=== PATIENT | female | born 2000 | race African-American/Black ===

== ENCOUNTER 2019-04-30 09:45 | Emergency (ER) | payer BC ==
[~2019-04-30] VITALS: Ht 144.8 cm; Wt 55.3 kg
[2019-04-30 09:57] VITALS: BP 105/59
--- NOTE | 2019-04-30 09:59 | NUR ---
ED Nurse Note: pt walked in to ED with grandmother due to vomiting since this morning. pt told that drank last night and did marijuana. denies any pain. AAO x4. respiration even and non-labored noted. will wait for the further order.
[2019-04-30] MEDS ORDERED: RANITIDINE HCL150 MG ORAL (10:09)
[2019-04-30] MEDS ORDERED: ONDANSETRON ODT4 MG BC (10:09)
[2019-04-30] MEDS ORDERED: Dicyclomine HCl 10mg/5ml oral soln ORAL ONE (10:15)
[2019-04-30] MEDS ORDERED: Lidocaine 2% Visc 15ml soln ORAL ONE (10:15)
[2019-04-30] MEDS ORDERED: Mylanta II UD 30ml ORAL ONE (10:15)
--- NOTE | 2019-04-30 10:18 | Emergency Room Report ---
History of Present Illness General Chief Complaint: Vomiting Source: Patient Present Illness HPI 19-year-old female presents ED for evaluation. Patient walked in complaining of abdominal pain with vomiting. Started after drinking alcohol last night. Threw up several times last night. Is having epigastric pain. Burning, 5 out of 10, nonradiating. Denies any diarrhea. Also admits to daily marijuana use. Denies any other drug use. No other aggravating relieving factors. Denies any other associated symptoms Allergies: Coded Allergies: No Known Allergies (Unverified , 04/30/19) Patient History Past Medical History: asthma Past Surgical History: none Pertinent Family History: none Social History: Reports: drug use - marijuana; Denies: smoking, alcohol use Now: No Immunizations: UTD Reviewed Nursing Documentation: PMH: Agreed; PSxH: Agreed Nursing Documentation-PMH Past Medical History: No History, Except For Hx Asthma: Yes Review of Systems All Other Systems: negative except mentioned in HPI Physical Exam Vital Signs Date Time Temp Pulse Resp B/P (MAP) Pulse Ox O2 Delivery O2 Flow Rate FiO2 04/30/19 09:50 98.2 106 20 105/59 (74) 96 Room Air Sp02 EP Interpretation: reviewed, normal General Appearance: no apparent distress, alert, GCS 15, non-toxic Head: normocephalic Eyes: bilateral eye normal inspection, bilateral eye PERRL ENT: normal ENT inspection Neck: normal inspection Respiratory: normal inspection Cardiovascular #1: normal inspection Gastrointestinal: normal bowel sounds, non tender, soft, non-distended, no guarding, no rebound Rectal: deferred Genitourinary: no CVA tenderness Musculoskeletal: back normal Neurologic: alert, oriented x3, responsive, motor strength/tone normal, sensory intact, speech normal Psychiatric: normal inspection Skin: no rash Lymphatic: normal inspection Medical Decision Making Diagnostic Impression: Primary Impression: Gastritis Qualified Codes: K29.20 - Alcoholic gastritis without bleeding ER Course Hospital Course 19-year-old F presents to ED with epigastric pain with N/V. differential diagnosis: gastritis, SBO, cholecystits Clinical course Patient placed on stretcher. 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 After initial history, exam reveals a female in no acute distress. Abdomen is soft with no guarding or rebound. Good capillary refill. Vitals stable. discussed findings with patient. I offered option for IV fluids and medication but she declined stating that she would prefer to take oral medications. given ODT Zofran, p.o. Pepcid, GI cocktail here. also discussed the cofounding concern of chronic marijuana use which could lead to cyclical vomiting syndrome. Patient states that she will discuss this with her PMD. safe for discharge with close outpatient follow-up I feel this is a highly complex case requiring extensive working including EKG/ Rhythm strip, Xray/CT/US, Blood/urine lab work, repeat exams while in ED, and administration of strong opiates/narcotics for pain control, admission to hospital or close patient follow up. Diagnosis - gastritis Stable and discharged to home with prescriptions for Zantac, zofran. Followup with PMD. Return to ED if symptoms recur or worsen Last Vital Signs Date Time Temp Pulse Resp B/P (MAP) Pulse Ox O2 Delivery O2 Flow Rate FiO2 04/30/19 09:57 98.2 106 20 105/59 96 Room Air Status: improved Disposition: HOME, SELF-CARE Condition: Stable Scripts Ranitidine Hcl* (ZANTAC*) 150 Mg Tablet 150 MG ORAL TWICE A DAY, #30 TAB Prov: Pj Blanton MD 04/30/19 Ondansetron Odt* (ZOFRAN ODT*) 4 Mg Tab.rapdis 4 MG BC EVERY 6 HOURS PRN for Nausea & Vomiting, #20 TAB 0 Refills Prov: Pj Blanton MD 04/30/19 Patient Instructions: Cannabis Use Disorder Pj Blanton MD Apr 30, 2019 10:18
[2019-04-30 10:29] VITALS: BP 105/59
--- NOTE | 2019-04-30 10:29 | NUR ---
ER DISCHARGE NOTE: Patient is cleared to be discharged per ERMD, pt is aox4, on room air, with stable vital signs. pt was given dc and prescription instructions, pt was able to verbalize understanding, pt id band removed. pt is able to ambulate with steady gait. pt took all belongings.
== END 2019-04-30 10:32 | disposition home or self-care (01) ==
LOC: EMR 10:20
DX: K29.20 Alcoholic gastritis without bleeding (principal); F12.90 Cannabis use, unspecified, uncomplicated
CPT/HCPCS: 99282